=== PATIENT | female | born 1975 | race Native Hawaiian/Other Pacific Islander ===

== ENCOUNTER 2018-07-21 16:06 | Emergency (ER) | payer BC ==
[~2018-07-21] VITALS: Ht 172.7 cm; Wt 170.1 kg
[2018-07-21 16:14] VITALS: TEMP 97.5
[2018-07-21] MEDS ORDERED: LITHIUM CARB600 MG PO (16:23)
[2018-07-21] MEDS ORDERED: PROZAC10 MG PO (16:24)
[2018-07-21] MEDS ORDERED: LATUDA40 MG PO (16:25)
[2018-07-21] MEDS ORDERED: ADDERALL30 MG PO (16:26)
[2018-07-21] MEDS ORDERED: MYRBETRIQ50 MG PO (16:26)
[2018-07-21 17:09] LABS: POTASSIUM 4.4 mmol/L (3.6-5.2)
[2018-07-21 17:11] LABS: PLATELET COUNT 427 K/uL (152-353)
[2018-07-21 18:40] VITALS: BP 128/88
== END 2018-07-21 18:40 | disposition home or self-care (01) ==
LOC: ED 16:06
PROVIDERS: Emergency Medicine
DX: G43.909 Migraine, unspecified, not intractable, without status migrainosus (principal)
CPT/HCPCS: 36415; 80053; 85027; 99283; J1885

== ENCOUNTER 2019-04-11 16:13 | Emergency (ER) | payer BC ==
[~2019-04-11 16:13] MED LIST: ADDERALL30 MG PO; LATUDA40 MG PO; LITHIUM CARB600 MG PO; MYRBETRIQ50 MG PO; PROZAC10 MG PO
== END 2019-04-11 17:11 | disposition home or self-care (01) ==
LOC: ED 16:13
DX: M54.5 Low back pain (principal)
CPT/HCPCS: 99281